=== PATIENT | female | born 1950 | race Caucasian/White ===

== ENCOUNTER → 2018-05-24 | Outpatient (CLI) | payer OTHER ==
[~2018-05-24] MED LIST: AMOX-559 PO; CALC1TAB46 PO; CALC625T64 PO; CHOL10005 PO; GLUC100026 PO; MULT1CAP59 PO; ONDA8TAB98 PO; PANT20TA27 PO; PANT40TA65 PO
--- NOTE | 2018-05-24 15:47 | RADIOLOGY IMAGING REPORT ---
FACILITY: [facility] [place] PATIENT NAME: R[address]MA [address] : [id number] MR: [id number] V: [id number] EXAM DATE: [id number] ORDERING PHYSICIAN: RAE BREWER TECHNOLOGIST: Sujatha Henry PROCEDURE:BILATERAL DIGITAL SCREENING MAMMOGRAM WITH CAD ASSISTED INTERPRETATION & 3D TOMOSYNTHESIS COMPARISON:Prior mammograms 03/19/17, 10/19/15, 09/27/15, 04/23/14. INDICATIONS:SCREENING FINDINGS: A moderate amount of fibroglandular tissue is seen throughout the breasts. The parenchymal pattern has remained stable allowing for difference in mammographic technique & patient positioning. There is no evidence of malignant appearing mass, malignant appearing calcifications or other secondary sign of malignancy in either breast. DIAGNOSTIC CATEGORY 1--NEGATIVE. RECOMMENDATIONS: ROUTINE MAMMOGRAM AND CLINICAL EVALUATION. IMPRESSION: BIRADS 1: Negative. No significant abnormality is seen. Dictated by: Giovanna Michael M.D. on 05/24/2018 at 15:28 Transcribed by: TAB on 05/24/2018 at 15:39 Approved by: Giovanna Michael M.D. on 05/24/2018 at 15:46 [facility]
== END ==
LOC: MAMO 03:49
PROVIDERS: ATTEND Family Medicine
DX: Z12.31 Encounter for screening mammogram for malignant neoplasm of breast (principal)
CPT/HCPCS: 77063; 77067